=== PATIENT | female | born 1985 | race Caucasian/White ===

== ENCOUNTER 2018-10-18 23:10 | Emergency (ER) | payer SELFPAY ==
[2018-10-18] MEDS ORDERED: NA CHLORIDE 0.9% 1,000 ML ONE (23:59)
[2018-10-18] MEDS ORDERED: NA CHLORIDE 0.9% 250 ML ONE (23:59)
[2018-10-18] MEDS ORDERED: LIDOCAINE 1% MPF 5 ML VIAL ONE (23:59)
[2018-10-18] MEDS ORDERED: METHYLPREDNISOLONE 125 MG INJ ONE (23:59)
[2018-10-18] MEDS ORDERED: MAGNESIUM SULFATE 1 gm IVPB 1 GM/100 ML BAG IV ONE (23:59)
[2018-10-18] MEDS ORDERED: AZITHROMYCIN 500 MG INJ IVPB ONE (23:59)
[2018-10-19] MEDS ORDERED: HYDROCODONE/CHLORPHEN 5 ML/OSYR ONE (01:34)
--- NOTE | 2018-10-19 01:50 | EDPHYS ---
Physician Documentation [facility] Name: Madeleine Bridges Age: 32 yrs Sex: Female : 1985 Arrival Date: 10/18/2018 Time: 23:14 Bed 16 Private MD: ED Physician Heaven Chen HPI: 10/18 23:34 This 32 yrs old Female presents to ER via Ambulatory with complaints of snw Breathing Difficulty. 23:34 The patient has shortness of breath at rest. Onset: The symptoms/episode began/occurred snw gradually, 1 week(s) ago. Duration: The symptoms are continuous, and are steadily getting worse. The patient's shortness of breath is aggravated by coughing. Associated signs and symptoms: The patient has no apparent associated signs or symptoms. Severity of symptoms: At their worst the symptoms were moderate. It is unknown whether or not the patient has had similar symptoms in the past. The patient has not recently seen a physician. Historical: - Allergies: 23:24 PENICILLINS; ak1 23:24 Vancomycin; ak1 - Home Meds: 23:24 Valium Oral [Active]; ak1 - PMHx: 23:24 chronic back pain; ak1 - PSHx: 23:24 X2; ak1 - Immunization history:: Adult Immunizations unknown. - Social history:: Smoking status: Patient uses tobacco products, vapes. - Ebola Screening: : No symptoms or risks identified at this time. ROS: 23:33 Constitutional: Negative for fever, chills, and weight loss, Eyes: Negative for injury, snw pain, redness, and discharge, ENT: Negative for injury, pain, and discharge, Neck: Negative for injury, pain, and swelling, Cardiovascular: Negative for chest pain, palpitations, and edema, Abdomen/GI: Negative for abdominal pain, nausea, vomiting, diarrhea, and constipation, Back: Negative for injury and pain, : Negative for injury, bleeding, discharge, and swelling, MS/Extremity: Negative for injury and deformity, Skin: Negative for injury, rash, and discoloration, Neuro: Negative for headache, weakness, numbness, tingling, and seizure. 23:33 Respiratory: Positive for cough, with no reported sputum, shortness of breath. Exam: 23:32 Head/Face: Normocephalic, atraumatic. Eyes: Pupils equal round and reactive to light, snw extra-ocular motions intact. Lids and lashes normal. Conjunctiva and sclera are non-icteric and not injected. Cornea within normal limits. Periorbital areas with no swelling, redness, or edema. Neck: Trachea midline, no thyromegaly or masses palpated, and no cervical lymphadenopathy. Supple, full range of motion without nuchal rigidity, or vertebral point tenderness. No Meningismus. Chest/axilla: Normal chest wall appearance and motion. Nontender with no deformity. No lesions are appreciated. Cardiovascular: Regular rate and rhythm with a normal S1 and S2. No gallops, murmurs, or rubs. Normal PMI, no JVD. No pulse deficits. Abdomen/GI: Soft, non-tender, with normal bowel sounds. No distension or tympany. No guarding or rebound. No evidence of tenderness throughout. Back: No spinal tenderness. No costovertebral tenderness. Full range of motion. Skin: Warm, dry with normal turgor. Normal color with no rashes, no lesions, and no evidence of cellulitis. MS/ Extremity: Pulses equal, no cyanosis. Neurovascular intact. Full, normal range of motion. Neuro: Awake and alert, GCS 15, oriented to person, place, time, and situation. Cranial nerves II-XII grossly intact. Motor strength 5/5 in all extremities. Sensory grossly intact. Cerebellar exam normal. Normal gait. 23:32 Constitutional: The patient appears alert, awake, anxious, uncomfortable. 23:32 ENT: TM's: erythema, that is moderate, bilaterally, Nose: is normal, Mouth: is normal, Posterior pharynx: is normal. 23:32 Respiratory: mild respiratory distress is noted, Respirations: shallow respirations, tachypnea, Breath sounds: + upper airway congestion. wheezing: is heard diffusely, paroxysmal cough. Vital Signs: 23:24 BP 136 / 95; Pulse 95; Resp 22; Temp 98.2; Pulse Ox 98% on R/A; Weight 106.14 kg (R); ak1 Height 5 ft. 1 in. (154.94 cm) (R); Pain 6/10; 10/19 01:43 BP 123 / 61; Pulse 102; Resp 20; Temp 98.3; Pulse Ox 96% on R/A; ak1 02:38 BP 112 / 64; Pulse 89; Resp 16; Temp 98.2; Pulse Ox 98% on R/A; ak1 10/18 23:24 Body Mass Index 44.21 (106.14 kg, 154.94 cm) ak1 MDM: 10/18 23:26 Patient medically screened. snw 10/19 01:50 Data reviewed: vital signs, nurses notes. Data interpreted: Pulse oximetry: on room air snw is 96 %. Interpretation: acceptable. Counseling: I had a detailed discussion with the patient and/or guardian regarding: the historical points, exam findings, and any diagnostic results supporting the discharge/admit diagnosis, radiology results, the need for outpatient follow up, to return to the emergency department if symptoms worsen or persist or if there are any questions or concerns that arise at home. 10/18 23:33 Order name: Flu; Complete Time: 00:38 snw 10/19 00:38 Order name: Chest Pa And Lat (2 Views) XRAY snw 10/18 23:32 Order name: Misc. Order: Lidocaine 1% in 5ml NS nebulized at 8L/min; Complete Time: snw 00:16 Administered Medications: 00:16 Drug: Zithromax 500 mg Route: IVPB; Infused Over: 1 hrs; Site: left hand; ak1 01:38 Follow up: IV Status: Completed infusion ak1 00:17 Drug: NS 0.9% 1000 ml Route: IV; Rate: 1 bolus; Site: left hand; ak1 01:38 Follow up: IV Status: Completed infusion ak1 00:17 Drug: Magnesium Sulfate 1 grams Route: IVPB; Infused Over: 1 hrs; Site: left hand; ak1 01:12 Follow up: IV Status: Completed infusion ak1 00:17 Drug: SOLU-Medrol 125 mg Route: IVP; Site: left hand; ak1 01:12 Follow up: Response: No adverse reaction ak1 01:38 Drug: Tussionex Pennkinetic ER 5 ml Route: PO; ak1 01:41 Follow up: Response: No adverse reaction ak1 02:15 Drug: ProTONIX 40 mg Route: IVP; Site: left hand; ak1 02:36 Follow up: Response: No adverse reaction ak1 Disposition: 03:20 Co-signature as Attending Physician, Heaven Chen MD. ma2 Disposition: 10/19/18 01:48 Discharged to Home. Impression: Bronchitis, not specified as acute or chronic, Laryngeal spasm. - Condition is Stable. - Discharge Instructions: Acute Bronchitis, Adult, Steps to Quit Smoking, Cool Mist Vaporizer, Cough, Adult, Rehydration, Adult. - Prescriptions for orphenadrine citrate 100 mg Oral Tablet Sustained Release - take 1 tablet by ORAL route 2 times per day As needed; 20 tablet. Albuterol Sulfate 90 mcg/actuation - inhale 1-2 puff by INHALATION route every 4-6 hours; 1 Inhaler. Zithromax 500 mg Oral Tablet - take 1 tablet by ORAL route once daily for 5 days; 5 tablet. - Work release form, Medication Reconciliation Form, Thank You Letter, Antibiotic Education, Prescription Opioid Use form. - Follow up: Private Physician; When: Tomorrow; Reason: Recheck today's complaints, Continuance of care, Re-evaluation by your physician. Follow up: Emergency Department; When: As needed; Reason: Worsening of condition. Signatures: Dispatcher [employer] EDIN Jamee Wilson, TONNY-C HEALTH EDUCATION TEACHER-[employer] Stephanie Del Valle, RN RN [email or web address] Heaven Chen MD MD ma2 Corrections: (The following items were deleted from the chart) 02:39 01:48 10/19/2018 01:48 Discharged to Home. Impression: Bronchitis, not specified as ak1 acute or chronic; Laryngeal spasm. Condition is Stable. Forms are Medication Reconciliation Form, Thank You Letter, Antibiotic Education, Prescription Opioid Use. Follow up: Private Physician; When: Tomorrow; Reason: Recheck today's complaints, Continuance of care, Re-evaluation by your physician. Follow up: Emergency Department; When: As needed; Reason: Worsening of condition. snw
--- NOTE | 2018-10-19 01:50 | ER ---
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 Transition of care: patient was not received from another setting of care. Onset of symptoms is unknown. Risk Assessment: Do you want to hurt yourself or someone else? Patient reports no desire to harm self or others. Initial Sepsis Screen: Does the patient meet any 2 criteria? No. Patient's initial sepsis screen is negative. Does the patient have a suspected source of infection? No. Patient's initial sepsis screen is negative. Care prior to arrival: None. 23:20 Acuity: DAVID 4 ak1 23:20 Method Of Arrival: Ambulatory ak1 Triage Assessment: 23:24 General: Appears in no apparent distress. Behavior is calm, cooperative. Pain: ak1 Complains of pain in right foot. EENT: No signs and/or symptoms were reported regarding the EENT system. Neuro: No deficits noted. Cardiovascular: No deficits noted. 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 GI: No signs and/or symptoms were reported involving the gastrointestinal system. GI: No signs and/or symptoms were reported involving the gastrointestinal system. : No signs and/or symptoms were reported regarding the genitourinary system. Derm: No signs and/or symptoms reported regarding the dermatologic system. Musculoskeletal: Reports pain in right foot. Historical: - Allergies: 23:24 PENICILLINS; ak1 23:24 Vancomycin; ak1 - Home Meds: 23:24 Valium Oral [Active]; ak1 - PMHx: 23:24 chronic back pain; ak1 - PSHx: 23:24 X2; ak1 - Immunization history:: Adult Immunizations unknown. - Social history:: Smoking status: Patient uses tobacco products, vapes. - Ebola Screening: : No symptoms or risks identified at this time. Screenin:25 Abuse screen: Denies threats or abuse. Denies injuries from another. Nutritional ak1 screening: No deficits noted. Tuberculosis screening: No symptoms or risk factors identified. Fall Risk None identified. Assessment: 23:41 Cardiovascular: Rhythm is regular. Respiratory: Airway is patent Respiratory effort is ak1 labored. 10/19 00:18 Respiratory: Breath sounds are clear. ak1 Vital Signs: 10/18 23:24 BP 136 / 95; Pulse 95; Resp 22; Temp 98.2; Pulse Ox 98% on R/A; Weight 106.14 kg (R); ak1 Height 5 ft. 1 in. (154.94 cm) (R); Pain 6/10; 10/19 01:43 BP 123 / 61; Pulse 102; Resp 20; Temp 98.3; Pulse Ox 96% on R/A; ak1 02:38 BP 112 / 64; Pulse 89; Resp 16; Temp 98.2; Pulse Ox 98% on R/A; ak1 10/18 23:24 Body Mass Index 44.21 (106.14 kg, 154.94 cm) ak1 ED Course: 10/18 23:14 Patient arrived in ED. es 23:20 Stephanie Del Valle, RN is Primary Nurse. ak1 23:23 Triage completed. ak1 23:24 Jamee Wilson FNP-C is PHCP. snw 23:24 Heaven Chen MD is Attending Physician. snw 23:24 Arm band placed on Patient placed in an exam room, on a stretcher, on pulse oximetry, ak1 Patient notified of wait time. 23:25 Patient has correct armband on for positive identification. Bed in low position. Call ak1 light in reach. Side rails up X 1. Pulse ox on. NIBP on. 23:25 No provider procedures requiring assistance completed. ak1 10/19 00:18 Inserted saline lock: 22 gauge in left hand, using aseptic technique. ak1 01:13 Patient moved to radiology via wheelchair. kw 01:13 X-ray completed. Patient tolerated procedure well. kw 01:13 Patient moved back from radiology. kw 01:15 Chest Pa And Lat (2 Views) XRAY In Process Unspecified. EDMS 02:38 IV discontinued, intact, bleeding controlled, No redness/swelling at site. Pressure ak1 dressing applied. Administered Medications: 00:16 Drug: Zithromax 500 mg Route: IVPB; Infused Over: 1 hrs; Site: left hand; ak1 01:38 Follow up: IV Status: Completed infusion ak1 00:17 Drug: NS 0.9% 1000 ml Route: IV; Rate: 1 bolus; Site: left hand; ak1 01:38 Follow up: IV Status: Completed infusion ak1 00:17 Drug: Magnesium Sulfate 1 grams Route: IVPB; Infused Over: 1 hrs; Site: left hand; ak1 01:12 Follow up: IV Status: Completed infusion ak1 00:17 Drug: SOLU-Medrol 125 mg Route: IVP; Site: left hand; ak1 01:12 Follow up: Response: No adverse reaction ak1 01:38 Drug: Tussionex Pennkinetic ER 5 ml Route: PO; ak1 01:41 Follow up: Response: No adverse reaction ak1 02:15 Drug: ProTONIX 40 mg Route: IVP; Site: left hand; ak1 02:36 Follow up: Response: No adverse reaction ak1 Outcome: 01:48 Discharge ordered by . fritz 02:38 Discharged to home ambulatory. ak1 02:38 Condition: good 02:38 Discharge instructions given to patient, Instructed on discharge instructions, follow up and referral plans. no drinking with medication, no driving heavy equipment, medication usage, safe sex practices, Demonstrated understanding of instructions, follow-up care, medications, Prescriptions given X 3. 02:39 Patient left the ED. ak1 Signatures: Dispatcher [employer] Jamee Ramirez, TONNY-Fausto SUPERVISOR [employer]-Jill Torres Kimberlee kw Krenek, Amber, RN RN ak1
[2018-10-19] MEDS ORDERED: PANTOPRAZOLE 40 MG INJ ONE (02:06)
--- NOTE | 2018-10-19 08:20 | RAD REPORT ---
EXAM DESCRIPTION: RAD - Chest Pa And Lat (2 Views) - 10/19/2018 1:14 am CLINICAL HISTORY: COUGH Chest pain. COMPARISON: No comparisons FINDINGS: The lungs are clear. The heart is normal in size. No displaced fractures. IMPRESSION: No acute or concerning finding suspected.
== END 2018-10-19 02:39 | disposition home or self-care (01) ==
LOC: ER 23:10
DX: J40 Bronchitis, not specified as acute or chronic (principal); J38.5 Laryngeal spasm; Z72.0 Tobacco use; Z88.0 Allergy status to penicillin; Z88.3 Allergy status to other anti-infective agents
CPT/HCPCS: 71046; 87804; C9113; J0456; J2930; J3475; J7030